=== PATIENT | male | born 1975 | race African-American/Black ===

== ENCOUNTER 2016-09-18 08:05 | Emergency (ER) | payer OTHER ==
[~2016-09-18] VITALS: Ht 188 cm; Wt 112.7 kg
[~2016-09-18 08:05] MED LIST: DOXY100T PO; HYDR-3533 PO; SULF-154 PO
[2016-09-18 08:07] VITALS: BP 117/84; PULSE 84; RESP 16; TEMP 98.4; O2SAT 99
[2016-09-18] MEDS ORDERED: PROPARACAINE HCL 0.5% OPHT SOLN 15 ML BTL EACH EYE ONE (08:30)
[2016-09-18] MEDS ORDERED: POLYMYXIN/TRIMETHOPRIM OPHT SOLN 10 ML BTL RIGHT EYE ONE (08:45)
[2016-09-18] MEDS ORDERED: POLY10O RIGHT EYE (08:50)
--- NOTE | 2016-09-18 08:50 | PD ---
HPI Chief Complaint: Eye Problems/Injury Time Seen by Provider: 08:24 Travel History International Travel<30 days: No Contact w/Intl Traveler<30days: No Traveled to known affect area: No History of Present Illness HPI 41-year-old male here for evaluation of pain and discharged from his right eye. Symptoms have been going on for about 2 weeks, worse over the last 3 days. 2 weeks ago the patient noticed a small pimple on his lower eyelid on the right. Pain is minimal. He is having some blurry vision when he wakes up in the morning and notices a crusty discharge. Her vision clears after blinking his eyes. No known history of any eye disease. He does not wear contacts. No foreign body sensation. No trauma. PFSH Past Medical History Medical History: Denies Significant Hx Hx Anticoagulant Therapy: No Cardiovascular Problems: No Chemotherapy: No Cerebrovascular Accident: No Diabetes: No Diminished Hearing: No Respiratory: No Influenza Vaccination: No Past Surgical History Surgical History: No Previous Surgery Hysterectomy: No Social History Alcohol Use: No Tobacco Use: Yes (1.5 PPD) Substance Use: No (QUIT 2014 USING MARIJUANA) Allergies-Medications (Allergen,Severity, Reaction): Coded Allergies: *MDRO Multi-Drug Resistant Organism (Verified Adverse Reaction, Unknown, ) MRSA (scrotom-06/13/16) Reported Meds & Prescriptions Reported Meds & Active Scripts Active No Active Prescriptions or Reported Medications Review of Systems Except as stated in HPI: all other systems reviewed are Neg Physical Exam Narrative GENERAL: Pleasant, well-developed, well-nourished, comfortable, no acute distress. SKIN: Warm and dry. HEAD: Atraumatic. Normocephalic. EYES: Pupils equal, round, 3 mm, reactive to light. Right eye with scleral injection with mild purulent drainage. Right lower eyelid is mildly erythematous and edematous without pustule. No proptosis. EOMI. Cornea is clear. Vision is 20/15 in the left, 20/20 in the right, 20/20 in bilateral eyes. No corneal abrasions. No foreign body. NEUROLOGICAL: Awake and alert. No obvious cranial nerve deficits. Motor grossly within normal limits. Normal speech. PSYCHIATRIC: Appropriate mood and affect; insight and judgment normal. Data Data Last Documented VS Vital Signs Date Time Temp Pulse Resp B/P Pulse Ox O2 Delivery O2 Flow Rate FiO2 09/18/16 08:07 98.4 84 16 117/84 99 Orders Proparacaine 0.5% Opth Soln (Alcaine 0.5 (09/18/16 08:30) Polymyxin/Trimethop Opht Soln (Polytrim (09/18/16 08:45) MDM Medical Decision Making Medical Screen Exam Complete: Yes Emergency Medical Condition: Yes Differential Diagnosis Conjunctivitis, blepharitis, iritis, episcleritis, acute angle-closure glaucoma unlikely Narrative Course This is a 41-year-old male with signs and symptoms of conjunctivitis/ blepharitis. I exam is documented in physical exam. Unfortunately our [facility] is being service. Patient's pain is minimal. There is no corneal clouding. His visual acuity is 20/15 in the left, 20/20 in the right, 20/20 in bilateral eyes. I do not suspect acute angle closure glaucoma. Plan is to start him on antibiotic eyedrops with ophthalmology follow-up this week. He was informed on when to return to the emergency department. He verbalizes understanding and agreement with plan. Diagnosis Primary Impression: Blepharitis of eyelid of right eye Qualified Code: H01.002 - Blepharitis of right lower eyelid, unspecified type Additional Impression: Conjunctivitis Qualified Code: H10.31 - Acute conjunctivitis of right eye, unspecified acute conjunctivitis type Referrals: Kathy Powell MD Additional Instructions: Follow-up with [facility] [employer] workflow consultant Dr. Powell or an [facility] workflow consultant of your choice this week. Use eyedrops as prescribed. Return to the emergency department for worsening symptoms or any other concerns. Scripts Polymyxin B-Trimethoprim Opth Drops (Polytrim Opth Drops)10,000-0.1 Unit/Ml-% Soln1 Drop RIGHT EYE Q6HR #1 BOTTLE Ref 0 Prov:Geremias Monsalve MD 09/18/16 Disposition: 01 DISCHARGE HOME Condition: Stable Geremias Monsalve MD Sep 18, 2016 08:50
== END 2016-09-18 09:04 | disposition home or self-care (01) ==
LOC: PHEFT 08:05
DX: H01.002 Unspecified blepharitis right lower eyelid (principal); H10.31 Unspecified acute conjunctivitis, right eye; F17.210 Nicotine dependence, cigarettes, uncomplicated
CPT/HCPCS: 99283